=== PATIENT | female | born 1975 | race Caucasian/White ===

== ENCOUNTER 2024-04-29 13:17 | Inpatient (IN) | payer OTHER ==
[2024-04-29 14:06] VITALS: BMI 26.4
[2024-04-29] MEDS ORDERED: ACETAMINOPHEN 325 MG TABLET (FP) PO PRN (14:57)
[2024-04-29] MEDS ORDERED: IBUPROFEN 400 MG TABLET (FP) PO PRN (14:57)
[2024-04-29] MEDS ORDERED: NICOTINE POLACRILEX 4 MG GUM BUC PRN (14:57)
[2024-04-29] MEDS ORDERED: NICOTINE POLACRILEX 4 MG LOZENGE BC PRN (14:57)
[2024-04-29] MEDS ORDERED: BISMUTH SUBSALICYLATE 524 MG/30 ML PO PRN (14:57)
[2024-04-29] MEDS ORDERED: NALOXONE (NARCAN) HCL 4 MG/0.1 ML SPRAY NS PRN (14:57)
[2024-04-29] MEDS ORDERED: LOPERAMIDE HCL 2 MG CAPSULE PO PRN (14:57)
[2024-04-29] MEDS ORDERED: chlordiazePOXIDE HCL 25 MG CAPSULE PO PRN (14:57)
[2024-04-29] MEDS ORDERED: MAG HYDROX/AL HYDROX/SIMETH 30 ML UNIT-DOSE CUP PO PRN (14:57)
[2024-04-29] MEDS ORDERED: DICYCLOMINE HCL 10 MG CAPSULE PO PRN (14:57)
[2024-04-29] MEDS ORDERED: hydrOXYzine PAMOATE 25 MG CAPSULE (FP) PO PRN (14:57)
[2024-04-29] MEDS ORDERED: METHOCARBAMOL 500 MG TABLET PO PRN (14:57)
[2024-04-29] MEDS ORDERED: MAGNESIUM HYDROX 2400MG/30ML ORAL SUSPENSION 30 ML CUP PO PRN (14:57)
[2024-04-29] MEDS ORDERED: BENZONATATE 200 MG CAPSULE PO PRN (14:57)
[2024-04-29] MEDS ORDERED: guaiFENesin 600 MG TABLET.ER (FP) PO PRN (14:57)
[2024-04-29] MEDS ORDERED: IBUPROFEN 600 MG TABLET (FP) PO PRN (14:57)
[2024-04-29] MEDS ORDERED: ONDANSETRON *ODT* 4 MG TABLET SL PRN (14:57)
[2024-04-29] MEDS ORDERED: BENZOCAINE/MENTHOL (CHLORASEPTIC ) LOZENGE MM PRN (14:57)
[2024-04-29] MEDS ORDERED: methaDONE HCL 10 MG TABLET PO PRN (16:58)
[2024-04-29] MEDS ORDERED: chlordiazePOXIDE HCL 25 MG CAPSULE ONE (17:01)
[2024-04-29] MEDS ORDERED: methaDONE HCL 10 MG TABLET (FOR DETOX USE ONLY) ONE (17:02)
[2024-04-29] MEDS ORDERED: cloNIDine HCL 0.1 MG TABLET ONE (17:02)
[2024-04-29] MEDS: methaDONE HCL 40 MG DISPERSABLE TABLET PO ONE (17:09)
[2024-04-29] MEDS: chlordiazePOXIDE HCL 25 MG CAPSULE PO SCH (17:09)
[2024-04-29] MEDS: amLODIPine BESYLATE 5 MG TABLET (FP) PO SCH (17:45)
[2024-04-29] MEDS: cloNIDine HCL 0.1 MG TABLET PO SCH (18:44)
[2024-04-29] MEDS ORDERED: MELATONIN 5 MG TABLETS PO SCH (22:00)
[2024-04-29] MEDS: GABAPENTIN 300 MG CAPSULE PO SCH (22:46)
[2024-04-29] MEDS: ALBUTEROL SO4 HFA INHALER IH PRN (22:46)
[2024-04-29] MEDS: BACLOFEN 10 MG TABLET (FP) PO SCH (22:46)
[2024-04-29] MEDS: diphenhydrAMINE HCL 25 MG CAPSULE (FP) PO SCH (22:46)
[2024-04-29] MEDS: ATORVASTATIN CA 20 MG TABLET (FP) PO SCH (22:46)
[2024-04-29] MEDS: hydrOXYzine PAMOATE 50 MG CAPSULE (FP) PO PRN (22:46)
[2024-04-29] MEDS: MELATONIN 5 MG TABLETS PO SCH (22:47)
[2024-04-29] MEDS: THIAMINE 100 MG TABLET PO SCH (22:47)
[2024-04-30] MEDS: ABACAVIR/DOLUTEGRAVIR/LAMIVUDI (TRIUMEQ) TABLET PO SCH (07:34)
[2024-04-30] MEDS: ASPIRIN 81 MG CHEWABLE TABLETS PO SCH (10:04)
[2024-04-30] MEDS: methaDONE 40 MG, methaDONE 10 MG PO ONE (10:04)
[2024-04-30] MEDS: NICOTINE 14 MG/24 HOURS TOPICAL PATCH TD SCH (10:07)
[2024-04-30] MEDS: TENOFOVIR DISOPROXIL FUMARATE 300 MG TABLET PO SCH (10:08)
[2024-04-30] MEDS: PRENATAL VITAMINS W/ FOLIC ACID TABLET (FP) PO SCH (10:08)
[2024-04-30] MEDS: ESCITALOPRAM OXALATE 10 MG TABLET PO SCH (10:08)
[2024-04-30 13:18] LABS: HEMATOCRIT 35.6 % (32.4-45.2); HEMOGLOBIN 11.6 GM/dL (10.7-15.3); MCH 30.7 pg (25.7-33.7); MCHC 32.7 g/dl (32.0-36.0); MEAN PLT VOLUME 9.2 fl (7.5-11.1); PLATELET COUNT 138 10^3/uL (134-434); RBC 3.78 M/mm3 (3.60-5.2); RDW 15.6 % (11.6-15.6)
[2024-04-30 13:46] LABS: CHLORIDE 107 mmol/L (98-107); POTASSIUM 3.3 mmol/L (3.5-5.1); SODIUM 142 mmol/L (136-145)
[2024-04-30 14:03] LABS: ANION GAP 6 mmol/L (4-13); BLOOD UREA NITROGEN 18.4 mg/dL (7-18); CALCIUM 8.8 mg/dL (8.5-10.1); CO2 30 mmol/L (21-32)
[2024-04-30 14:04] LABS: GLUCOSE,RANDOM 83 mg/dL (74-106)
[2024-04-30 14:06] LABS: SGOT/AST 13 U/L (15-37); SGPT/ALT 13 U/L (13-61)
[2024-04-30 14:07] LABS: CREATININE 1.3 mg/dL (0.55-1.3)
[2024-04-30 14:08] LABS: BILIRUBIN,TOTAL 0.3 mg/dL (0.2-1); TOT PROT 6.1 g/dl (6.4-8.2)
[2024-04-30 14:09] LABS: ALK PHOS 111 U/L (45-117)
[2024-04-30 14:28] LABS: ALBUMIN 2.9 g/dl (3.4-5.0)
[2024-04-30] MEDS: POTASSIUM CHLORIDE ORAL LIQUID 20 MEQ/15 ML PO ONE (15:41)
[2024-04-30 17:28] LABS: HIV INTERPRETATION PRESUMPTIVE POSITIVE (NEGATIVE)
[2024-04-30] MEDS: diphenhydrAMINE HCL 50 MG CAPSULE PO SCH (18:58)
[2024-04-30] MEDS ORDERED: POTASSIUM CHLORIDE ORAL LIQUID 20 MEQ/15 ML PO SCH (22:00)
[2024-04-30] MEDS: diphenhydrAMINE HCL 25 MG CAPSULE (FP) PO SCH (22:51)
[2024-04-30] MEDS: POTASSIUM CHLORIDE ORAL LIQUID 20 MEQ/15 ML PO SCH (22:51)
[2024-04-30] MEDS: QUEtiapine FUMARATE 100 MG TABLET (FP) PO SCH (22:51)
[2024-05-01] MEDS ORDERED: cloNIDine HCL 0.1 MG TABLET PO PRN
[2024-05-01] MEDS: chlordiazePOXIDE HCL 25 MG CAPSULE PO SCH (05:46)
[2024-05-01] MEDS: POLYETHYLENE GLYCOL (HEALTHYLAX) 3350 17 GM PACKET PO PRN (05:49)
[2024-05-01] MEDS: methaDONE 40 MG, methaDONE 20 MG PO ONE (09:36)
[2024-05-01 12:56] LABS: POTASSIUM 4.4 mmol/L (3.5-5.1)
[2024-05-01 13:20] LABS: BLOOD UREA NITROGEN 22.4 mg/dL (7-18)
[2024-05-01 13:34] LABS: CALCIUM 8.6 mg/dL (8.5-10.1)
[2024-05-01 13:38] LABS: CREATININE 1.1 mg/dL (0.55-1.3)
[2024-05-01] MEDS ORDERED: diphenhydrAMINE HCL 25 MG CAPSULE (FP) PO ONE (17:26)
[2024-05-02] MEDS ORDERED: chlordiazePOXIDE HCL 10 MG CAPSULE PO PRN
[2024-05-02] MEDS: chlordiazePOXIDE HCL 10 MG CAPSULE PO SCH (05:09)
[2024-05-02] MEDS: methaDONE 40 MG, methaDONE 30 MG PO ONE (10:20)
[2024-05-02] MEDS: amLODIPine BESYLATE 2.5 MG TABLET (FP) PO SCH (11:07)
[2024-05-02] MEDS: SUMAtriptan SUCCINATE 25 MG TABLET PO ONE (14:32)
[2024-05-03] MEDS: chlordiazePOXIDE HCL 10 MG CAPSULE PO SCH (05:41)
[2024-05-03] MEDS ORDERED: methaDONE HCL 40 MG DISPERSABLE TABLET PO ONE ×2 (10:00)
[2024-05-03] MEDS: methaDONE 40 MG, methaDONE 20 MG PO SCH (10:38)
[2024-05-03] MEDS ORDERED: diphenhydrAMINE HCL 25 MG CAPSULE (FP) PO ONE (23:22)
[2024-05-03] MEDS: diphenhydrAMINE HCL 25 MG CAPSULE (FP) PO ONE (23:29)
[2024-05-04] MEDS: chlordiazePOXIDE HCL 10 MG CAPSULE PO ONE (05:30)
[2024-05-04 06:18] VITALS: RESP 16
[2024-05-04] MEDS ORDERED: methaDONE HCL 40 MG DISPERSABLE TABLET PO ONE (10:00)
[2024-05-04] MEDS ORDERED: methaDONE 80 MG, methaDONE 10 MG PO ONE (10:00)
[2024-05-04 10:13] VITALS: BP 104/66; PULSE 73; TEMP 96.6
[2024-05-04] MEDS: NALOXONE (NYS OPIOID OVERDOSE PROGRAM) 4 MG/0.1 ML SPRAY NS SCH (10:50)
== END 2024-05-04 10:57 | disposition home or self-care (01) | DRG 773 ==
LOC: YASAS 13:17 → Y3N 16:34
PROVIDERS: ADMIT Allergy & Immunology; ATTEND Surgery
PROC: HZ2ZZZZ Detoxification Services for Substance Abuse Treatment (ICD-10-PCS; principal; 2024-04-29)
DX: F10.230 Alcohol dependence with withdrawal, uncomplicated (principal); F11.20 Opioid dependence, uncomplicated; F14.20 Cocaine dependence, uncomplicated; F12.20 Cannabis dependence, uncomplicated; F17.210 Nicotine dependence, cigarettes, uncomplicated; F31.9 Bipolar disorder, unspecified; F19.282 Other psychoactive substance dependence with psychoactive substance-induced sleep disorder; F19.280 Other psychoactive substance dependence with psychoactive substance-induced anxiety disorder; F19.24 Other psychoactive substance dependence with psychoactive substance-induced mood disorder; F41.9 Anxiety disorder, unspecified; Z21 Asymptomatic human immunodeficiency virus [HIV] infection status; E87.6 Hypokalemia; E78.5 Hyperlipidemia, unspecified; J45.909 Unspecified asthma, uncomplicated; Z79.899 Other long term (current) drug therapy
CPT/HCPCS: 36415; 80048; 80053; 80305; 80307; 85027; 86780; 87389; 93005; 93010; J0475